=== PATIENT | female | born 1955 | race Caucasian/White ===

== ENCOUNTER → 2019-06-14 14:39 | Outpatient (CLI) | payer OTHER, SELFPAY ==
--- NOTE | ~2019-06-14 | XR_ITS ---
EXAMINATION:XR_[id number] DATE: 06/14/2019 15:00 INDICATION: Neck pain TECHNIQUE: AP, lateral, and odontoid views of the cervical spine are provided. COMPARISON: None FINDINGS: Alignment is normal. There is reversal of the normal cervical lordosis. The odontoid is int act. No fracture is identified. There is mild loss of intervertebral disc space height at C5-6. The v ertebral body heights are normal. There is mild multilevel facet and uncovertebral joint osteoarthrit is. Prevertebral soft tissues are normal. IMPRESSION: 1. Mild cervical spondylosis without acute findings. Reviewed, dictated and finalized at location A. RVISOR BRAKE REPAIR
--- NOTE | ~2019-06-14 | XR_ITS ---
EXAMINATION: XR shoulder LT min 2V DATE: 06/14/2019 15:00 INDICATION: Left shoulder pain. TECHNIQUE: 4 views of left shoulder were obtained. COMPARISON: None. FINDINGS: Bone alignment is normal. No fracture. There is mild osteoarthritis of glenohumeral joint a nd acromioclavicular joint. IMPRESSION: 1. Mild polyarticular osteoarthritis. Reviewed, dictated and finalized at location A. SIGMA BLACK BELT ENGINEER
== END ==
PROVIDERS: Visit Provider Physician Assistant
DX: M47.892 Other spondylosis, cervical region (principal); M19.012 Primary osteoarthritis, left shoulder
CPT/HCPCS: 72040; 73030

== ENCOUNTER → 2020-07-20 11:16 | Outpatient (CLI) | payer OTHER, SELFPAY ==
--- NOTE | ~2020-07-20 | MM_ITS ---
EXAMINATION: MM screening lin BI w justina HISTORY: Screening TECHNIQUE: Craniocaudal and mediolateral oblique 3-D tomosynthesis images were obtained and synthetic 2-D images were generated. CAD analysis was submitted and interpreted. COMPARISON: Comparison to multiple prior studies sequentially, with oldest reviewed study dated 11/20. BREAST PARENCHYMAL COMPOSITION: There are scattered areas of fibroglandular density. FINDINGS: There is no evidence of suspicious mass, calcification, or architectural distortion to sugg est malignancy in either breast. There has been no suspicious interval change. IMPRESSION: 1. No mammographic evidence of malignancy. 2. Recommend routine screening mammography in one year. BI-RADS Category 1: Negative Reviewed, dictated and finalized at location A.
== END ==
PROVIDERS: PCP Physician Assistant; Visit Provider Physician Assistant
DX: Z12.31 Encounter for screening mammogram for malignant neoplasm of breast (principal)
CPT/HCPCS: 77063; 77067

== ENCOUNTER → 2022-07-29 08:20 | Outpatient (CLI) | payer MEDICARE, SELFPAY ==
--- NOTE | ~2022-07-29 | US_ITS ---
Pelvic ultrasound. Clinical History: Left lower quadrant pain Technique: Realtime transabdominal and transvaginal scanning of the pelvis was performed. Color flow Doppler and Doppler spectral analysis were performed. Findings: The uterus is retroverted. The endometrial stripe has a thickness of 6 mm. No focal mass i s identified. Neither ovary seen. No adnexal mass seen. There is no evidence of free fluid in the cul de sac. Impression: Unremarkable uterus. Neither ovary seen. No adnexal mass seen. Reviewed, dictated and finalized at location M. Impression: Unremarkable uterus. Neither ovary seen. No adnexal mass seen.
== END ==
PROVIDERS: PCP Family Medicine; Visit Provider Family Medicine
DX: R10.32 Left lower quadrant pain (principal)
CPT/HCPCS: 76830; 76856

== ENCOUNTER → 2022-08-04 10:42 | Outpatient (CLI) | payer MEDICARE, SELFPAY ==
--- NOTE | ~2022-08-04 | CT_ITS ---
EXAMINATION: CT abdomen pelvis w con INDICATION: Left lower quadrant pain TECHNIQUE: Computed tomographic images of the abdomen and pelvis were obtained after the administrati on of 100 cc of Omnipaque 350 intravenous contrast. The dose-length product (DLP) was 449.81 mGy-cm. Automated exposure control and iterative reconstruction technique were employed. COMPARISON: None available FINDINGS: Minimal dependent atelectasis is present in the lung bases. The heart size is normal. There is a small sliding hiatal hernia. There is a 1.5 cm lesion in the right hepatic lobe measuring soft tissue density. There is a 2.0 cm cyst in the left hepatic lobe. The spleen, pancreas, gallbladder, a nd adrenal glands are normal. The kidneys are unremarkable. No pathologically enlarged abdominal or p elvic lymph nodes are identified. No free intraperitoneal gas or evidence of bowel obstruction. A lar ge volume of colonic stool is present. There is severe lumbar spondylosis at L5-S1. There is irregula r wall thickening and mild stricturing involving the sigmoid colon. No discrete fat plane between the sigmoid colon and left adnexa. IMPRESSION: 1. Irregular wall thickening and mild stricture of the sigmoid colon concerning for primary malignanc y of the colon. Correlate with colonoscopy is recommended. 2. Soft tissue density mass of the right hepatic lobe concerning for metastatic disease. Reviewed, dictated and finalized at location B. IMPRESSION: 1. Irregular wall thickening and mild stricture of the sigmoid colon concerning for primary malignancy of the colon. Correlate with colonoscopy is recommended . 2. Soft tissue density mass of the right hepatic lobe concerning for metastatic disease.
[2022-08-04 10:58] LABS: Estimated Glomerular Filt Rate > 60
== END ==
PROVIDERS: PCP Family Medicine; Visit Provider Physician Assistant
DX: R10.9 Unspecified abdominal pain (principal)
CPT/HCPCS: 74177; Q9967

== ENCOUNTER → 2022-09-19 13:14 | Outpatient (CLI) | payer MEDICARE, SELFPAY ==
--- NOTE | ~2022-09-19 | MM_ITS ---
EXAMINATION: MM screening [facility] BI w justina HISTORY: Screening mammogram TECHNIQUE: Craniocaudal and mediolateral oblique 3-D tomosynthesis images were obtained and synthetic 2-D images were generated. CAD analysis was submitted and interpreted. COMPARISON: 07/20/2020, 11/11/2018, 11/08/2018 BREAST PARENCHYMAL COMPOSITION: The breasts are heterogeneously dense, which may obscure small masses . FINDINGS: No suspicious mass, calcification, or architectural distortion are identified in either gwyn ast to suggest malignancy. There has been no suspicious interval change. IMPRESSION: 1. No mammographic evidence of malignancy. 2. Recommend routine screening mammography in one year. BI-RADS Category 1: Negative Reviewed, dictated and finalized at location A.
== END ==
PROVIDERS: PCP Family Medicine; Visit Provider Physician Assistant
DX: Z12.31 Encounter for screening mammogram for malignant neoplasm of breast (principal)
CPT/HCPCS: 77063; 77067

== ENCOUNTER 2024-01-13 12:48 | Outpatient (CLI) | payer MEDICARE, SELFPAY ==
--- NOTE | ~2024-01-13 | MM_ITS ---
EXAMINATION: MM screening lin BI w justina HISTORY: Screening mammogram TECHNIQUE: Craniocaudal and mediolateral oblique 3-D tomosynthesis images were obtained and synthetic 2-D images were generated. CAD analysis was submitted and interpreted. COMPARISON: 09/19/2022, 07/20/2020 BREAST PARENCHYMAL COMPOSITION:Not Dense. There are scattered areas of fibroglandular density. FINDINGS: No suspicious mass, calcification, or architectural distortion are identified in either gwyn ast to suggest malignancy. There has been no suspicious interval change. IMPRESSION: No mammographic evidence of malignancy. Recommend routine screening mammography in one year. BI-RADS Category 1: Negative Reviewed, dictated and finalized at location .
== END 2024-01-13 12:49 | disposition home or self-care (01) ==
LOC: MICIMG 12:49
PROVIDERS: PCP Family Medicine; Visit Provider Nurse Practitioner Family
DX: Z12.31 Encounter for screening mammogram for malignant neoplasm of breast (principal)
CPT/HCPCS: 77063; 77067

== ENCOUNTER 2024-05-25 10:25 | Outpatient (CLI) | payer MEDICARE, SELFPAY ==
--- NOTE | 2024-05-25 10:41 | ECHO_ITS ---
Patient Info Name: Katia Hunt Age: 68 years : 1955 Gender: Female Ht: 66 in Wt: 140 lbs BSA: 1.72 m2 HR: 64 bpm BP: 152 / 82 mmHg Heart Rhythm: Sinus Rhythm Technical Quality: Good Exam Date: 05/25/2024 11:49 AM Exam Location: Echo Lab Patient Status: Outpatient Admit Date: 05/25/2024 Staff Ordering Physician: Fouzia Bush MD Sewing Trimmer: Binta Bonner RDCS Attending Provider: Fouzia Bush MD Referring Physician: Rachelle COLEMAN; Exam Type: CA echo doppler color flow Study Info Indications - hx for colon cancer and chemo/preoperative check Strain analysis performed. Complete two-dimensional, color flow and Doppler transthoracic echocardiogram is performed. Summary 1. Complete two-dimensional, color flow and Doppler transthoracic echocardiogram is performed. 2. Left ventricular chamber dimension is normal. 3. Left ventricular systolic function is normal, estimated at 60-65%. 4. The left ventricular diastolic function is normal. 5. E/e' 9 is minimally elevated. 6. Global longitudinal strain is normal at -22.7%. 7. Left atrial chamber dimension is mildly enlarged. 8. There is trace mitral valve regurgitation. 9. There is mild tricuspid valve regurgitation. 10. Mild pulmonary hypertension, estimated pulmonary arterial systolic pressure is 41 mmHg. 11. There is small circumferential pericardial effusion. Left Ventricle E/e' 9 is minimally elevated. Global longitudinal strain is normal at -22.7%. Left ventricular chamber dimension is normal. Left ventricular systolic function is normal, estimated at 60-65%. The left ventricular diastolic function is normal. Right Ventricle Right ventricular systolic function is normal and with normal TAPSE 1.9 cm. Right ventricular chamber dimension is normal. Left Atria Left atrial chamber dimension is mildly enlarged. Right Atria Right atrial chamber dimension is normal. Aortic Valve The aortic valve is trileaflet. There is no aortic valve stenosis. There is no aortic valve regurgitation. Pulmonic Valve There is no pulmonic regurgitation. Mitral Valve There is no mitral valve stenosis. There is trace mitral valve regurgitation. Tricuspid Valve There is mild tricuspid valve regurgitation. Mild pulmonary hypertension, estimated pulmonary arterial systolic pressure is 41 mmHg. Pericardium/Pleural No cardiac tamponade. There is small circumferential pericardial effusion. Inferior Vena Cava Normal inferior vena cava with >50% collapse upon inspiration consistent with normal right atrial pressure, 5 mmHg. Aorta The aortic root size at the sinus of Valsalva is normal. Left Ventricular Outflow Tract Name Value Normal LVOT 2D LVOT Diameter 2.0 cm LVOT Doppler LVOT Peak Gradient 4 mmHg LVOT Mean Gradient 2 mmHg LVOT VTI 21 cm LVOT VTI/AV VTI Ratio 0.7 LVOT Stroke Volume 68 ml LVOT CO 4.5 l/min LVOT CI 2.6 l/min/m2 Pulmonic Valve Name Value Normal RVOT Doppler RVOT Peak Gradient 2 mmHg PV Doppler PV Peak Gradient 5 mmHg Mitral Valve Name Value Normal MV Doppler MV Decel [place] 181 cm/s2 MV PHT 114 ms MV Area (PHT) 1.9 cm2 4.0-5.0 MV Diastolic Function MV E Peak Velocity 71 cm/s MV A Peak Velocity 58 cm/s MV E/A 1.2 MV Decel Time 393 ms MV Annular TDI MV E/e' (Septal) 10.8 <=8.0 MV E/e' (Lateral) 8.9 <=8.0 MV E/e' (Average) 9.9 Tricuspid Valve Name Value Normal TV Regurgitation Doppler TR Peak Velocity 300 cm/s TR Peak Gradient 23 mmHg Estimated PAP/RSVP RA Pressure 5 mmHg <=5 PA Systolic Pressure 41 mmHg <36 RV Systolic Pressure 41 mmHg <36 Aorta Name Value Normal Ascending Aorta Ao Root Diameter (MM) 2.8 cm Ao Root Diam Index (MM) 1.6 cm/m2 Aortic Valve Name Value Normal AV Doppler AV Peak Velocity 135 cm/s AV Peak Gradient 7 mmHg AV Mean Gradient 4 mmHg AV VTI 29 cm AV Area (Cont Eq VTI) 2.3 cm2 >=3.0 AV Area (Cont Eq Shantanu) 2.3 cm2 AV Regurgitation 2D LVOT Area 3.2 cm2 Ventricles Name Value Normal LV Dimensions 2D/MM IVS Diastolic Thickness (2D) 0.6 cm 0.6-1.0 LVID Diastole (2D) 5.4 cm 3.8-5.2 LVIW Diastolic Thickness (2D) 0.6 cm 0.6-0.9 LVID Systole (2D) 3.6 cm 2.2-3.5 LVOT Diameter 2.0 cm LV Mass (2D Cubed) 106.48 g 67.00-162.00 LV Mass Index (2D Cubed) 62 g/m2 43-95 Relative Wall Thickness (2D) 0.22 LV Fractional Shortening/Ejection Fraction 2D/MM LV Fractional Shortening (2D) 33 % 27-45 LV EF (2D Teicholz) 62 % 54-74 LV Diastolic Volume (4C MOD) 85 ml LV EF (4C MOD) 73 % LV Diastolic Volume (2C MOD) 66 ml LV EF (2C MOD) 72 % LV Diastolic Volume (BP MOD) 77 ml 46-106 LV Diastolic Volume Index (BP MOD) 45 ml/m2 29-61 LV Systolic Volume (BP MOD) 21 ml 14-42 LV Systolic Volume Index (BP MOD) 12 ml/m2 8-24 LV EF (BP MOD) 73 % 54-74 LV Diastolic Length (4C) 7.6 cm LV Systolic Length (4C) 6.0 cm LV Stroke Volume (4C MOD) 62 ml Atria Name Value Normal LA Dimensions LA Dimension (MM) 4.2 cm 2.7-3.8 LA Volume (4C A-L) 59 ml LA Volume (BP A-L) 64 ml RA Dimensions RA Area (4C) 13.0 cm2 <=18.0 EchoPAC Name Value Normal TRAVIS AA peak sys SL (AWMA) 29.6 % AAS peak sys SL (AWMA) 24.9 % AI peak sys SL (AWMA) 33.1 % AL peak sys SL (AWMA) 22.6 % AP peak sys SL (AWMA) 25.4 % peak sys SL (AWMA) 27.1 % AVC (AWMA) 414 ms BA peak sys SL (AWMA) 17.5 % BAS peak sys SL (AWMA) 20.5 % BI peak sys SL (AWMA) 18.8 % BL peak sys SL (AWMA) 23.1 % BP peak sys SL (AWMA) 22.2 % BS peak sys SL (AWMA) 17.4 % G peak SL(A2C) (AWMA) 23.7 % G peak SL(A4C) (AWMA) 21.6 % G peak SL(APLAX) (AWMA) 22.7 % G peak SL(Avg) (AWMA) 22.7 % MA peak sys SL (AWMA) 21.0 % MAS peak sys SL (AWMA) 22.1 % NV peak sys SL (AWMA) 23.9 % ML peak sys SL (AWMA) 20.2 % MP peak sys SL (AWMA) 23.7 % MS peak sys SL (AWMA) 21.5 % Report Signatures
--- NOTE | 2024-05-25 10:47 | EST_ITS ---
Patient Info Name: Katia Hunt Age: 68 years : 1955 Gender: Female Ht: 66 in Wt: 140 lbs BSA: 1.72 m2 HR: 58 bpm BP: 146 / 73 mmHg Exam Date: 05/25/2024 11:14 AM Exam Location: Echo Lab Patient Status: Outpatient Admit Date: 05/25/2024 Staff Ordering Physician: Fouzia Bush MD Attending Provider: Fouzia Bush MD Exercise Technologist: Binta Bonner [facility] Exercise Physician: Carlos Sanchez DO Exam Type: CA stress test treadmill Study Info A treadmill exercise stress test was performed. Summary 1. 1. Negative Ron exercise stress test for ischemic ST changes by ECG criteria. However, patient achieved only 76% MPHR for age group which reduces sensitivity of the test. 2. 2. Reduced functional capacity, achieving 7 METs of workload. 3. 3. Baseline hypertension. 4. 4. Appropriate HR response to exercise. 5. 5. Appropriate HR recovery at 1 minute post exercise. 6. 6. No imaging with stress testing. 7. 7. Patient informed of the above results. Protocol: Ron Stress ECG Details Stage: REST Duration (min): 1 min : 47 sec Speed (mph): 0.0 Grade (%): 0 HR (bpm): 58 SBP (mmHg): 146 DBP (mmHg): 73 METS: --- Stage: REST Duration (min): 5 min : 37 sec Speed (mph): 0.0 Grade (%): 0 HR (bpm): 63 SBP (mmHg): 146 DBP (mmHg): 73 METS: --- Stage: STAGE 1 Duration (min): 1 min : 0 sec Speed (mph): 1.7 Grade (%): 10 HR (bpm): 84 SBP (mmHg): 146 DBP (mmHg): 73 METS: --- Stage: STAGE 1 Duration (min): 2 min : 0 sec Speed (mph): 1.7 Grade (%): 10 HR (bpm): 93 SBP (mmHg): 146 DBP (mmHg): 73 METS: --- Stage: STAGE 1 Duration (min): 3 min : 0 sec Speed (mph): 1.7 Grade (%): 10 HR (bpm): 98 SBP (mmHg): 126 DBP (mmHg): 73 METS: --- Stage: STAGE 2 Duration (min): 1 min : 0 sec Speed (mph): 2.5 Grade (%): 12 HR (bpm): 105 SBP (mmHg): 126 DBP (mmHg): 73 METS: --- Stage: STAGE 2 Duration (min): 2 min : 0 sec Speed (mph): 2.5 Grade (%): 12 HR (bpm): 109 SBP (mmHg): 137 DBP (mmHg): 72 METS: --- Stage: STAGE 2 Duration (min): 2 min : 58 sec Speed (mph): 2.5 Grade (%): 12 HR (bpm): 116 SBP (mmHg): 137 DBP (mmHg): 72 METS: --- Stage: RECOVERY Duration (min): 0 min : 1 sec Speed (mph): 1.5 Grade (%): 0 HR (bpm): 116 SBP (mmHg): 137 DBP (mmHg): 72 METS: --- Stage: RECOVERY Duration (min): 1 min : 1 sec Speed (mph): 0.0 Grade (%): 0 HR (bpm): 104 SBP (mmHg): 137 DBP (mmHg): 72 METS: --- Stage: RECOVERY Duration (min): 2 min : 1 sec Speed (mph): 0.0 Grade (%): 0 HR (bpm): 82 SBP (mmHg): 137 DBP (mmHg): 72 METS: --- Stage: RECOVERY Duration (min): 3 min : 1 sec Speed (mph): 0.0 Grade (%): 0 HR (bpm): 73 SBP (mmHg): 137 DBP (mmHg): 72 METS: --- Stage: RECOVERY Duration (min): 4 min : 1 sec Speed (mph): 0.0 Grade (%): 0 HR (bpm): 69 SBP (mmHg): 160 DBP (mmHg): 82 METS: --- Stage: RECOVERY Duration (min): 4 min : 3 sec Speed (mph): 0.0 Grade (%): 0 HR (bpm): 68 SBP (mmHg): 160 DBP (mmHg): 82 METS: --- Rest HR: 63 bpm Peak HR: 117 bpm Rest Sys BP: 146 mmHg Peak Sys BP: 160 mmHg Max Pred HR: 154 bpm % Max Pred HR: 76 % Target HR: 131 bpm Max RPP: 18,720 bpm*mmHg Blevins Score: 0 Termination Reason: Reached target heart rate or workload Cardiac Symptoms: Shortness of breath, Weakness Max ST Seg Deviation: -1.20 mm Total Time: 5 min : 58 sec Rest Deluca BP: 73 mmHg Peak Deluca BP: 82 mmHg Angina Score: None Total METS: 7.1 Resting ECG Sinus rhythm. Stress ECG No ST changes. Arrhythmias None. Report Signatures
== END 2024-05-25 10:26 | disposition home or self-care (01) ==
PROVIDERS: PCP Family Medicine; Visit Provider Family Medicine
DX: Z01.818 Encounter for other preprocedural examination (principal); C18.9 Malignant neoplasm of colon, unspecified; C78.00 Secondary malignant neoplasm of unspecified lung; I36.1 Nonrheumatic tricuspid (valve) insufficiency; I27.20 Pulmonary hypertension, unspecified; I31.39 Other pericardial effusion (noninflammatory)
CPT/HCPCS: 93017; 93306; 94375; 94726; 94729